=== PATIENT | male | born 1995 | race Caucasian/White ===

== ENCOUNTER 2023-03-19 08:49 | Emergency (ER) | payer MEDICAID ==
[~2023-03-19] VITALS: Ht 175.3 cm; Wt 85.0 kg
[2023-03-19 08:57] VITALS: BP 120/69; PULSE 70; RESP 16; TEMP 98.4; O2SAT 100
[2023-03-19] MEDS ORDERED: AMPH30CA MT (10:06)
== END 2023-03-19 10:45 | disposition home or self-care (01) ==
LOC: ER 09:20
DX: Z76.0 Encounter for issue of repeat prescription (principal); J45.909 Unspecified asthma, uncomplicated
CPT/HCPCS: 99281; 99283

== ENCOUNTER 2023-03-19 20:28 | Emergency (ER) | payer MEDICAID ==
[~2023-03-19] VITALS: Ht 177.8 cm; Wt 86.0 kg
[~2023-03-19 20:28] MED LIST: AMPH30CA MT
[2023-03-19 20:30] VITALS: O2SAT 98
[2023-03-19 21:32] LABS: BASOPHILS % 0.8 % (0.0-2.0); EOSINOPHILS % 3.2 % (0.0-5.0); HEMATOCRIT. 38.6 % (42.0-52.0); HEMOGLOBIN. 13.5 g/dL (14.0-18.0); MEAN CORPUSCULAR HEMOGLOBIN 30.5 pg (28.0-32.0); MEAN CORPUSCULAR VOLUME 86.9 fL (80.0-94.0); MEAN PLATELET VOLUME 9.6 fl (7.4-10.4); MONOCYTES % 8.6 % (2.0-8.0); NEUTROPHILS % 50.4 % (40.0-76.0); PLATELET 276 x1000/uL (130-400); RED BLOOD CELL COUNT 4.44 mill/uL (4.7-6.1); RED CELL DISTRIBUTION WIDTH 13.2 % (11.6-14.6)
[2023-03-19 21:40] LABS: CHLORIDE 106 mEq/L (98-107)
[2023-03-19 21:47] LABS: ETHANOL BLOOD < 10 mg/dL (-10)
[2023-03-19 21:55] LABS: CLARITY URINE CLEAR (CLEAR); COLOR URINE YELLOW (YELLOW); KETONES URINE NEGATIVE (NEGATIVE); LEUKOCYTE ESTERASE URINE NEGATIVE (NEGATIVE); NITRITE URINE NEGATIVE (NEGATIVE); OCCULT BLOOD URINE NEGATIVE (NEGATIVE); PROTEIN URINE NEGATIVE (NEGATIVE); SPECIFIC GRAVITY URINE 1.016 (1.005-1.030); UROBILINOGEN URINE 0.2 E.U./dL (0.2-1.0)
[2023-03-19 22:12] LABS: *AMPHETAMINES SCREEN URINE NEGATIVE (NEGATIVE); *BARBITURATES SCREEN URINE NEGATIVE (NEGATIVE); *BENZODIAZEPINES SCREEN URINE NEGATIVE (NEGATIVE); *COCAINE SCREEN URINE NEGATIVE (NEGATIVE); CANNABINOID URINE SCREEN NEGATIVE (NEGATIVE); METHADONE URINE SCREEN NEGATIVE (NEGATIVE); OPIATES URINE SCREEN NEGATIVE (NEGATIVE); PHENCYCLIDINE URINE SCREEN NEGATIVE (NEGATIVE)
[2023-03-20 13:52] VITALS: BP 110/60; PULSE 55; RESP 16; TEMP 98.4
== END 2023-03-20 15:00 | disposition home or self-care (01) ==
LOC: ER 20:28
DX: R45.851 Suicidal ideations (principal); J45.909 Unspecified asthma, uncomplicated; F32.9 Major depressive disorder, single episode, unspecified
CPT/HCPCS: 36415; 80053; 80305; 80307; 80320; 80329; 81003; 85025; 99285; G0480

== ENCOUNTER 2023-04-15 15:36 | Emergency (ER) | payer BC, MEDICAID ==
[~2023-04-15] VITALS: Ht 175.3 cm; Wt 90.0 kg
[2023-04-15 15:49] VITALS: BP 127/78; TEMP 98.9; O2SAT 99
[2023-04-15 15:56] VITALS: PULSE 82
[2023-04-15] MEDS ORDERED: TOPUD PO (16:43)
== END 2023-04-15 17:25 | disposition home or self-care (01) ==
LOC: ER 15:36
DX: G89.29 Other chronic pain (principal); M54.42 Lumbago with sciatica, left side; J45.909 Unspecified asthma, uncomplicated; F32.A Depression, unspecified; Z90.89 Acquired absence of other organs; Z88.1 Allergy status to other antibiotic agents
CPT/HCPCS: 99282